=== PATIENT | male | born 1935 | race Two or more races ===

== ENCOUNTER 2016-07-09 23:43 | Emergency (ER) | payer OTHER ==
[2016-07-10] MEDS ORDERED: ASPIRIN 81 MG TABLET, CHEWABLE PO ONE (00:14)
--- NOTE | 2016-07-10 00:14 | ER Document Report ---
ED Medical Screen (RME) - General Chief Complaint: Chest Pain Stated Complaint: BLOOD PRESSURE CONCERNS,CHEST PAIN Time seen by provider: 00:11 Mode of Arrival: Ambulatory Information source: Patient Notes: 80-year-old male presents to ED for chest pain since this morning. He states his left arm started feeling like something was running up and down his arm is but denies pain or pressure. Patient states pain does not radiate anywhere. Patient states his pain went away at this time. I have greeted and performed a rapid initial assessment of this patient. A comprehensive ED assessment and evaluation of the patient, analysis of test results and completion of medical decision making process will be conducted by an additional ED providers. TRAVEL OUTSIDE OF THE [place] IN LAST 30 DAYS: No - Related Data Allergies/Adverse Reactions: No Known Allergies Allergy (Verified 09/17/15 19:08) Past Medical History - Past Medical History Cardiac Medical History: Reports: Hx Hypertension Renal/ Medical History: Reports: Hx Benign Prostatic Hyperplasia Physical Exam - Vital signs Vitals: Temp Pulse Resp BP Pulse Ox 97.3 F 101 H 18 155/73 H 98 07/10/16 00:01 07/10/16 00:01 07/10/16 00:01 07/10/16 00:01 07/10/16 00:01 Course - Vital Signs Vital signs: Temp Pulse Resp BP Pulse Ox 97.3 F 101 H 18 155/73 H 98 07/10/16 00:01 07/10/16 00:01 07/10/16 00:01 07/10/16 00:01 07/10/16 00:01
[2016-07-10] MEDS ORDERED: ASPIRIN 81 MG TABLET, CHEWABLE ONE (00:18)
[2016-07-10 00:40] LABS: ABSOLUTE BASOPHILS # (AUTO) 0.1 10^3/uL (0.0-0.2); ABSOLUTE EOSINOPHILS # (AUTO) 1.1 10^3/uL (0.0-0.6); ABSOLUTE LYMPHOCYTES (AUTO) 1.7 10^3/uL (0.5-4.7); ABSOLUTE MONOCYTES (AUTO) 0.9 10^3/uL (0.1-1.4); ABSOLUTE NEUT (AUTO) 4.2 10^3/uL (1.7-8.2); BASOPHILS % (AUTO) 1.5 % (0-2); HEMATOCRIT 39.8 % (37.9-51.0); HEMOGLOBIN 13.7 g/dL (13.5-17.0); HGB HCT DIFFERENCE 1.3; LYMPHOCYTES % (AUTO) 21.5 % (13-45); MEAN CORPUSCULAR HEMOGLOBIN 30.9 pg (27.0-33.4); MEAN CORPUSCULAR HGB CONC 34.4 g/dL (32.0-36.0); MEAN CORPUSCULAR VOLUME 90 fl (80-97); MONOCYTES % (AUTO) 10.9 % (3-13); RED BLOOD COUNT 4.43 10^6/uL (4.35-5.55); RED CELL DISTRIBUTION WIDTH 13.6 % (11.5-14.0); SEGMENTED NEUTROPHILS % (AUTO) 52.1 % (42-78)
[2016-07-10 00:50] LABS: ALANINE AMINOTRANSFERASE 21 U/L (21-72); ALBUMIN 3.9 g/dL (3.5-5.0); ALKALINE PHOSPHATASE 143 U/L (38-126); ANION GAP 9 (5-19); ASPARTATE AMINO TRANSFERASE 20 U/L (17-59); BILIRUBIN,TOTAL 0.4 mg/dL (0.2-1.3); BLOOD UREA NITROGEN 21 mg/dL (7-20); CALCIUM 8.8 mg/dL (8.4-10.2); CARBON DIOXIDE 30 mmol/L (22-30); CHLORIDE 103 mmol/L (98-107); CREATINE KINASE 91 U/L (55-170); CREATININE RESULT 1.11 mg/dL (0.52-1.25); GLUCOSE 99 mg/dL (75-110); MAGNESIUM 2.1 mg/dL (1.6-2.3); SODIUM 142.3 mmol/L (137-145); TOTAL PROTEIN 6.9 g/dL (6.3-8.2)
[2016-07-10 01:02] LABS: CREATINE KINASE MB 0.52 ng/mL (<4.55); TROPONIN I < 0.012 ng/mL
--- NOTE | 2016-07-10 02:45 | ER Document Report ---
ED Cardiac - General Chief Complaint: Chest Pain Stated Complaint: BLOOD PRESSURE CONCERNS,CHEST PAIN Time seen by provider: 02:41 Mode of Arrival: Ambulatory Information source: Patient, Relative - Granddaughter TRAVEL OUTSIDE OF THE [place] IN LAST 30 DAYS: No - HPI Patient complains to provider of: Chest pain Was the onset of pain: Sudden Is the pain a: New problem Chest pain location: Other - Left anterior chest wall Quality of pain: Mild, Dull Severity now: None Pain level currently: Denies Chest pain precipitating factors: Mental Exertion/Stress Cardiac risk factors: Hypertension Positive cardiac history: No Associated symptoms: None Exacerbated by: Denies Relieved by: Nothing Similar symptoms previously: No Recently seen / treated by doctor: No Notes: Patient is an 80-year-old male with a history of hypertension who presents to the emergency room with his granddaughter for complaints of tingling sensation in the left arm with left anterior chest wall pain that started while patient was crying because he was worried about his grandson who is currently traveling to [place], he reports symptoms started around 10 PM when he was emotionally upset, they have since resolved without intervention, have not returned, he denies any diaphoresis, no shortness of breath, granddaughter notes his blood pressure was elevated at time of symptoms starting as well, he does have a history of hypertension and takes medication for this, he did not take any additional medication this evening and his blood pressure at time of my evaluation is 128/62, he reports all of his symptoms have completely resolved and not returned - Related Data Allergies/Adverse Reactions: No Known Allergies Allergy (Verified 09/17/15 19:08) Home Medications: Current Home Medications Lisinopril [Prinivil] 20 mg PO DAILY 07/10/16 [History] Past Medical History - General Information source: Patient - Social History Smoking Status: Former Smoker Frequency of alcohol use: None Drug Abuse: None Family History: Reviewed & Not Pertinent - Past Medical History Cardiac Medical History: Reports: Hx Hypertension Renal/ Medical History: Reports: Hx Benign Prostatic Hyperplasia. Denies: Hx Peritoneal Dialysis Review of Systems - Review of Systems Constitutional: No symptoms reported EENT: No symptoms reported Cardiovascular: Chest pain Respiratory: No symptoms reported Gastrointestinal: No symptoms reported Genitourinary: No symptoms reported Male Genitourinary: No symptoms reported Musculoskeletal: No symptoms reported Skin: No symptoms reported Hematologic/Lymphatic: No symptoms reported Neurological/Psychological: Tingling -: Yes All other systems reviewed and negative Physical Exam - Vital signs Vitals: Temp Pulse Resp BP Pulse Ox 97.3 F 101 H 18 155/73 H 98 07/10/16 00:01 07/10/16 00:01 07/10/16 00:01 07/10/16 00:01 07/10/16 00:01 Interpretation: Normal - General General appearance: Appears well, Alert - HEENT Head: Normocephalic, Atraumatic Eyes: Normal Pupils: PERRL - Respiratory Respiratory status: No respiratory distress Chest status: Nontender Breath sounds: Normal Chest palpation: Normal - Cardiovascular Rhythm: Regular Heart sounds: Normal auscultation Murmur: No - Abdominal Inspection: Normal Distension: No distension Bowel sounds: Normal Tenderness: Nontender Organomegaly: No organomegaly - Back Back: Normal, Nontender - Extremities General upper extremity: Normal inspection, Nontender, Normal color, Normal ROM , Normal temperature General lower extremity: Normal inspection, Nontender, Normal color, Normal ROM , Normal temperature, Normal weight bearing. No: Renay's sign - Neurological Neuro grossly intact: Yes Cognition: Normal Orientation: AAOx4 Bibi Coma Scale Eye Opening: Spontaneous Dougherty Coma Scale Verbal: Oriented Dougherty Coma Scale Motor: Obeys Commands Bibi Coma Scale Total: 15 Speech: Normal Motor strength normal: LUE, RUE, LLE, RLE Sensory: Normal - Psychological Associated symptoms: Normal affect, Normal mood - Skin Skin Temperature: Warm Skin Moisture: Dry Skin Color: Normal Course - Re-evaluation Re-evalutation: 07/10/16 02:43 Patient symptoms completely resolved without any intervention, his symptoms started when he was emotionally stressed regarding his grandson who is traveling to [place], his vital signs are stable, his evaluation in the emergency room is unremarkable, patient has a history of hypertension but no history of VT previously, patient was discharged with instructions for follow-up , advised to return if symptoms worsen, patient acknowledges understanding and agreement with this plan - Vital Signs Vital signs: Temp Pulse Resp BP Pulse Ox 97.3 F 101 H 15 137/71 H 96 07/10/16 00:01 07/10/16 00:01 07/10/16 01:40 07/10/16 01:39 07/10/16 01:40 - Laboratory Result Diagrams: 07/10/16 00:27 07/10/16 00:27 Laboratory results interpreted by me: 07/10/16 07/10/16 00:27 00:27 Eosinophils % 14.0 H Absolute Eosinophils 1.1 H BUN 21 H Alkaline Phosphatase 143 H - Diagnostic Test Radiology reviewed: Image reviewed, Reports reviewed - EKG Interpretation by Me EKG shows normal: Sinus rhythm Rate: Normal Rhythm: NSR Discharge - Discharge Clinical Impression: Chest pain Qualifiers: Chest pain type: unspecified Qualified Code(s): R07.9 - Chest pain, unspecified Condition: Stable Disposition: HOME, SELF-CARE Instructions: Chest Pain of Unclear Cause ([facility]), Anxiety ([facility]) Additional Instructions: Follow up with your primary care provider in one to 2 days. Return to the emergency room immediately if symptoms worsen or any additional concerns.
[2016-07-10 02:51] VITALS: BP 140/67
--- NOTE | 2016-07-10 09:26 | EKG REPORT ---
SEVERITY:- ABNORMAL ECG - SINUS RHYTHM PROBABLE LEFT ATRIAL ABNORMALITY LEFT VENTRICULAR HYPERTROPHY : Confirmed by: Jona Clayton 10-Jul-2016 09:25:49
== END 2016-07-10 02:50 | disposition home or self-care (01) ==
LOC: ER 23:43
DX: R07.9 Chest pain, unspecified (principal); I10 Essential (primary) hypertension; Z87.891 Personal history of nicotine dependence
CPT/HCPCS: 36415; 71020; 80053; 82550; 82553; 83735; 84443; 84484; 85025; 93005; 93010; 99285

== ENCOUNTER 2016-09-29 10:48 | Emergency (ER) | payer MEDICAID, MEDICARE, OTHER ==
[2016-09-29] MEDS ORDERED: ASPIRIN 81 MG TABLET, CHEWABLE PO ONE (11:28)
--- NOTE | 2016-09-29 11:30 | ER Document Report ---
ED Medical Screen (RME) - General Chief Complaint: High Blood Pressure Stated Complaint: BLOOD PERSSURE ISSUES Time seen by provider: 11:29 Mode of Arrival: Ambulatory Information source: Patient Notes: 80-year-old male who speaks Vietnamese is here with his daughter who is translating in triage. he is here in the emergency room because of the complaint of dizziness and ear pressure all night. He takes lisinopril 20 mg daily. He goes to the [facility]. They attributed the symptoms to higher blood pressure than normal when it went up to 160/90 yesterday. TRAVEL OUTSIDE OF THE [place] IN LAST 30 DAYS: No - Related Data Allergies/Adverse Reactions: No Known Allergies Allergy (Verified 09/17/15 19:08) Past Medical History - Past Medical History Cardiac Medical History: Reports: Hx Hypertension Renal/ Medical History: Reports: Hx Benign Prostatic Hyperplasia. Denies: Hx Peritoneal Dialysis Physical Exam - Vital signs Vitals: Temp Pulse Resp BP Pulse Ox 98.1 F 99 12 181/84 H 97 09/29/16 10:51 09/29/16 10:51 09/29/16 10:51 09/29/16 10:51 09/29/16 10:51 Course - Vital Signs Vital signs: Temp Pulse Resp BP Pulse Ox 98.1 F 99 12 181/84 H 97 09/29/16 10:51 09/29/16 10:51 09/29/16 10:51 09/29/16 10:51 09/29/16 10:51
[2016-09-29 12:01] LABS: ABSOLUTE BASOPHILS # (AUTO) 0.1 10^3/uL (0.0-0.2); ABSOLUTE EOSINOPHILS # (AUTO) 0.7 10^3/uL (0.0-0.6); ABSOLUTE LYMPHOCYTES (AUTO) 1.7 10^3/uL (0.5-4.7); ABSOLUTE MONOCYTES (AUTO) 0.7 10^3/uL (0.1-1.4); ABSOLUTE NEUT (AUTO) 4.3 10^3/uL (1.7-8.2); BASOPHILS % (AUTO) 1.5 % (0-2); EOSINOPHILS % (AUTO) 9.5 % (0-6); HEMATOCRIT 41.7 % (37.9-51.0); HEMOGLOBIN 14.2 g/dL (13.5-17.0); HGB HCT DIFFERENCE 0.9; MEAN CORPUSCULAR HEMOGLOBIN 30.8 pg (27.0-33.4); MEAN CORPUSCULAR HGB CONC 34.1 g/dL (32.0-36.0); MEAN CORPUSCULAR VOLUME 90 fl (80-97); MONOCYTES % (AUTO) 9.7 % (3-13); RED BLOOD COUNT 4.62 10^6/uL (4.35-5.55); RED CELL DISTRIBUTION WIDTH 13.8 % (11.5-14.0); SEGMENTED NEUTROPHILS % (AUTO) 57.3 % (42-78); WHITE BLOOD COUNT 7.5 10^3/uL (4.0-10.5)
[2016-09-29 12:04] LABS: APPEARANCE,URINE CLEAR; BILIRUBIN,URINE NEGATIVE (NEGATIVE); GLUCOSE, URINE NEGATIVE (NEGATIVE); KETONES,URINE NEGATIVE (NEGATIVE); LEUKOCYTE ESTERASE,URINE NEGATIVE (NEGATIVE); NITRITE,URINE NEGATIVE (NEGATIVE); PROTEIN,URINE 30 mg/dL (NEGATIVE); URINE SPECIFIC GRAVITY 1.014; UROBILINOGEN,URINE NEGATIVE mg/dL (<2.0)
[2016-09-29 12:22] LABS: ALANINE AMINOTRANSFERASE 21 U/L (21-72); ALKALINE PHOSPHATASE 158 U/L (38-126); ANION GAP 13 (5-19); ASPARTATE AMINO TRANSFERASE 22 U/L (17-59); BILIRUBIN,DIRECT 0.2 mg/dL (0.0-0.4); BILIRUBIN,TOTAL 0.8 mg/dL (0.2-1.3); BLOOD UREA NITROGEN 19 mg/dL (7-20); CALCIUM 9.1 mg/dL (8.4-10.2); CARBON DIOXIDE 27 mmol/L (22-30); CHLORIDE 104 mmol/L (98-107); CREATINE KINASE 121 U/L (55-170); CREATININE RESULT 1.21 mg/dL (0.52-1.25); GLUCOSE 87 mg/dL (75-110); POTASSIUM 4.2 mmol/L (3.6-5.0); SODIUM 144.1 mmol/L (137-145); TOTAL PROTEIN 7.1 g/dL (6.3-8.2)
[2016-09-29 12:34] LABS: CREATINE KINASE MB 0.49 ng/mL (<4.55); TROPONIN I < 0.012 ng/mL
[2016-09-29] MEDS ORDERED: AMLODIPINE BESYLATE 5 MG TABLET PO ONE (13:00)
--- NOTE | 2016-09-29 13:06 | ER Document Report ---
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 Patient takes lisinopril 20 mg a day and states that he has been taking his medication regularly. Patient states yesterday he felt a little "lightheaded" with "ear pressure". Patient states that this is the normal feeling he has when his blood pressure is elevated. He denies any headache, chest pain, palpitations, back pain, or abdominal pain. Patient states he feels "better" without any intervention here at this facility thus far. Patient does not have insurance and is currently not a [place] citizen. He does go 3 times a week to the [facility] but does not go to the [facility] primary care physician. He gets his blood pressure medications written from the emergency department. TRAVEL OUTSIDE OF THE [place] IN LAST 30 DAYS: No - HPI Patient complains to provider of: High blood pressure, Other - See above Onset: Other - See above Onset/Duration: Gradual Quality of pain: Other - See above Severity: Mild Pain Level: Denies Problem is: New problem Pt currently taking medication for problem: Yes Associated symptoms: Other - See above Similar symptoms previously: Yes Recently seen / treated by doctor: No - Related Data Allergies/Adverse Reactions: No Known Allergies Allergy (Verified 09/17/15 19:08) Past Medical History - General Information source: Patient - Social History Smoking Status: Unknown if Ever Smoked Cigarette use (# per day): No Chew tobacco use (# tins/day): No Smoking Education Provided: No Frequency of alcohol use: None Family History: Reviewed & Not Pertinent - Past Medical History Cardiac Medical History: Reports: Hx Hypertension Renal/ Medical History: Reports: Hx Benign Prostatic Hyperplasia. Denies: Hx Peritoneal Dialysis - Immunizations Hx Diphtheria, Pertussis, Tetanus Vaccination: No Review of Systems - Review of Systems Constitutional: denies: Fever EENT: denies: Eye discharge, Nose discharge Cardiovascular: denies: Chest pain, Palpitations Respiratory: denies: Short of breath Gastrointestinal: denies: Vomiting Genitourinary: denies: Dysuria Neurological/Psychological: Other - no slurred speech -: Yes All other systems reviewed and negative Physical Exam - Vital signs Vitals: Temp Pulse Resp BP Pulse Ox 98.1 F 99 12 181/84 H 97 09/29/16 10:51 09/29/16 10:51 09/29/16 10:51 09/29/16 10:51 09/29/16 10:51 Interpretation: Normal Notes: Reviewed vital signs and nursing note as charted by RN. CONSTITUTIONAL: Alert and oriented and responds appropriately to questions. Well -appearing; well-nourished HEAD: Normocephalic; atraumatic EYES: PERRL; full extraocular range of motion ENT: Normal nose; no rhinorrhea; tympanic membranes clear bilaterally with good landmarks; moist mucous membranes; pharynx without lesions noted NECK: Supple without meningismus; no carotid bruits; non-tender; no cervical lymphadenopathy, no masses CARD: Regular rate and rhythm; no murmurs, no clicks, no rubs, no gallops; symmetric distal pulses RESP: Normal chest excursion without splinting or tachypnea; breath sounds clear and equal bilaterally; no wheezes, no rhonchi, no rales ABD/GI: Normal bowel sounds; non-distended; soft, non-tender BACK: The back appears normal and is non-tender to palpation, there is no CVA tenderness EXT: Patient has some bandages and ulcers to the medial lateral aspect of the right foot. Patient and granddaughter states that these lesions are much improved from 2 weeks ago and the patient was started on antibiotics. Patient is a 3 PM appointment today for the wound care clinic. Patient has no streaking or erythema to the lower leg. SKIN: Normal color for age and race; warm; dry; good turgor; capillary refill < 2 seconds; no acute lesions noted NEURO: No nystagmus. CN II through XII are intact. Patient has 5 out of 5 bilateral upper and lower extremity strength with sensation intact to light touch. Normal cerebellar examination. PSYCH: The patient's mood and manner are appropriate. Grooming and personal hygiene are appropriate. Course - Re-evaluation Re-evalutation: 09/29/16 13:04 Given the history and physical examination we will check basic labs, cardiac enzymes, troponin, EKG, and perform a CT scan of the head. X-ray of the chest performed in triage. Chest x-ray shows normal heart, normal mediastinum, no fractures, normal lung good, no pneumothorax. EKG shows a heart rate of 83, normal sinus rhythm, normal axis, LVH with no ST elevation or depression. Old EKG from 07/09/2016 shows a similar finding. Patient currently denies any symptoms. His blood pressure was elevated upon arrival. He has taken lisinopril 20 mg a day for an extended period of time. Chemistry as recorded. Normal troponin. The patient's CT imaging is unremarkable, I will most likely start the patient on a low dose of daily Norvasc with strict return precautions and follow-up with the [facility] as his new primary care physician. Patient received citizenship in February and will have Medicare at that time. 09/29/16 14:14 CT scan as recorded. Patient still denies any symptoms or focal neurological deficits. Patient will be discharged home with strict return precautions and follow-up with the [facility] with a prescription for 5 mg of Norvasc daily. - Vital Signs Vital signs: Temp Pulse Resp BP Pulse Ox 98.1 F 99 12 181/84 H 97 09/29/16 10:51 09/29/16 10:51 09/29/16 10:51 09/29/16 10:51 09/29/16 10:51 - Laboratory Result Diagrams: 09/29/16 11:40 09/29/16 11:40 Laboratory results interpreted by me: 09/29/16 09/29/16 09/29/16 11:40 11:40 11:40 Eosinophils % 9.5 H Absolute Eosinophils 0.7 H Est GFR (Non-Af Amer) 58 L Alkaline Phosphatase 158 H Urine Protein 30 H Discharge - Discharge Clinical Impression: Elevated blood pressure reading, Dizziness Condition: Good Disposition: HOME, SELF-CARE Additional Instructions: Come back immediately with any return of dizziness, any headache, chest pain, weakness or numbness, or any other acute problems. Please make sure that you follow-up with the primary care providers at the [facility] and take the new medication as prescribed. Prescriptions: Amlodipine Besylate [Norvasc 5 mg Tablet] 5 mg PO DAILY #30 tablet
[2016-09-29 15:09] VITALS: BP 139/80
--- NOTE | 2016-09-29 21:16 | EKG REPORT ---
SEVERITY:- ABNORMAL ECG - SINUS RHYTHM PROBABLE LEFT ATRIAL ABNORMALITY PROBABLE LEFT VENTRICULAR HYPERTROPHY : Confirmed by: Jona Clayton 29-Sep-2016 21:16:14
== END 2016-09-29 14:30 | disposition home or self-care (01) ==
LOC: ER 10:48
DX: I10 Essential (primary) hypertension (principal); R42 Dizziness and giddiness; L97.519 Non-pressure chronic ulcer of other part of right foot with unspecified severity
CPT/HCPCS: 36415; 70450; 71010; 80053; 81001; 82550; 82553; 84484; 85025; 93005; 93010; 99284

== ENCOUNTER 2016-11-16 14:29 | Emergency (ER) | payer OTHER ==
--- NOTE | 2016-11-16 15:51 | ER Document Report ---
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 He states that for the past 2 days he has had increased difficulty urinating and at times is been unable to urinate. He has had dysuria as well. He denies any fevers or chills. He states this morning he was able to urinate some and feels somewhat better today. He states he had a previous episode of urinary retention a few years ago in [place] and required a Bolanos catheter at that time. I have greeted and performed a rapid initial assessment of this patient. A comprehensive ED assessment and evaluation of the patient, analysis of test results and completion of the medical decision making process will be conducted by additional ED providers. TRAVEL OUTSIDE OF THE [place] IN LAST 30 DAYS: No - Related Data Allergies/Adverse Reactions: No Known Allergies Allergy (Verified 11/16/16 14:36) Past Medical History - Past Medical History Cardiac Medical History: Reports: Hx Hypertension Renal/ Medical History: Reports: Hx Benign Prostatic Hyperplasia. Denies: Hx Peritoneal Dialysis - Immunizations Hx Diphtheria, Pertussis, Tetanus Vaccination: No Physical Exam - Vital signs Vitals: Temp Pulse Resp BP Pulse Ox 98.5 F 104 H 20 139/87 H 95 11/16/16 14:36 11/16/16 14:36 11/16/16 14:36 11/16/16 14:36 11/16/16 14:36 - General General appearance: Appears well In distress: None - Respiratory Respiratory status: No respiratory distress Breath sounds: Normal. No: Rales, Rhonchi, Wheezing - Cardiovascular Rhythm: Regular Heart sounds: Normal auscultation, S1 appreciated, S2 appreciated Course - Vital Signs Vital signs: Temp Pulse Resp BP Pulse Ox 98.5 F 104 H 20 139/87 H 95 11/16/16 14:36 11/16/16 14:36 11/16/16 14:36 11/16/16 14:36 11/16/16 14:36
[2016-11-16 16:17] LABS: ABSOLUTE LYMPHOCYTES (AUTO) 0.7 10^3/uL (0.5-4.7); ABSOLUTE MONOCYTES (AUTO) 0.4 10^3/uL (0.1-1.4); ABSOLUTE NEUT (AUTO) 3.1 10^3/uL (1.7-8.2); BASOPHILS % (AUTO) 0.9 % (0-2); EOSINOPHILS % (AUTO) 0.1 % (0-6); HEMATOCRIT 44.3 % (37.9-51.0); HEMOGLOBIN 14.8 g/dL (13.5-17.0); HGB HCT DIFFERENCE 0.1; LYMPHOCYTES % (AUTO) 16.2 % (13-45); MEAN CORPUSCULAR HEMOGLOBIN 30.1 pg (27.0-33.4); MEAN CORPUSCULAR HGB CONC 33.5 g/dL (32.0-36.0); MEAN CORPUSCULAR VOLUME 90 fl (80-97); MONOCYTES % (AUTO) 8.6 % (3-13); RED BLOOD COUNT 4.93 10^6/uL (4.35-5.55); RED CELL DISTRIBUTION WIDTH 13.8 % (11.5-14.0); SEGMENTED NEUTROPHILS % (AUTO) 74.2 % (42-78); WHITE BLOOD COUNT 4.2 10^3/uL (4.0-10.5)
[2016-11-16 16:20] LABS: APPEARANCE,URINE CLEAR; BILIRUBIN,URINE NEGATIVE (NEGATIVE); GLUCOSE, URINE NEGATIVE (NEGATIVE); KETONES,URINE NEGATIVE (NEGATIVE); LEUKOCYTE ESTERASE,URINE NEGATIVE (NEGATIVE); NITRITE,URINE NEGATIVE (NEGATIVE); PROTEIN,URINE NEGATIVE (NEGATIVE); URINE SPECIFIC GRAVITY 1.011; UROBILINOGEN,URINE NEGATIVE mg/dL (<2.0)
[2016-11-16 16:28] LABS: ALANINE AMINOTRANSFERASE 33 U/L (21-72); ALBUMIN 3.9 g/dL (3.5-5.0); ALKALINE PHOSPHATASE 149 U/L (38-126); ANION GAP 12 (5-19); ASPARTATE AMINO TRANSFERASE 41 U/L (17-59); BILIRUBIN,DIRECT 0.3 mg/dL (0.0-0.4); BILIRUBIN,TOTAL 0.9 mg/dL (0.2-1.3); BLOOD UREA NITROGEN 19 mg/dL (7-20); CALCIUM 8.5 mg/dL (8.4-10.2); CARBON DIOXIDE 28 mmol/L (22-30); CHLORIDE 99 mmol/L (98-107); CREATININE RESULT 1.12 mg/dL (0.52-1.25); GLUCOSE 91 mg/dL (75-110); POTASSIUM 3.6 mmol/L (3.6-5.0); SODIUM 138.6 mmol/L (137-145); TOTAL PROTEIN 7.6 g/dL (6.3-8.2)
[2016-11-16] MEDS ORDERED: TAMSULOSIN HCL 0.4 MG CAP.SR.24H PO ONE (17:04)
--- NOTE | 2016-11-16 17:19 | ER Document Report ---
ED GI/ - General Chief Complaint: Abdominal Pain Stated Complaint: ABDOMINAL PAIN Time Seen by Provider: 11/16/16 15:42 Mode of Arrival: Wheelchair Information source: Patient Notes: Patient is an 81-year-old male who presents to the ER today for urinary retention 2 days. Patient has a history of BPH and is on Flomax, but cannot get in with his primary care provider, [facility] until the end of December. Patient has been urinating "just trickles" for the last 2 days and has some lower abdominal pressure because of it. He denies any fever, chills, hematuria, history of kidney stones, low back pain. He has had to have a Bolanos before for this. TRAVEL OUTSIDE OF THE [place] 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 Denies: Hx Peritoneal Dialysis Past Surgical History: Reports: Hx Orthopedic Surgery - right foot surgery - Immunizations Hx Diphtheria, Pertussis, Tetanus Vaccination: No Review of Systems - Review of Systems Constitutional: No symptoms reported EENT: No symptoms reported Cardiovascular: No symptoms reported Respiratory: No symptoms reported Gastrointestinal: No symptoms reported Genitourinary: See HPI Male Genitourinary: No symptoms reported Musculoskeletal: No symptoms reported Skin: No symptoms reported Hematologic/Lymphatic: No symptoms reported Neurological/Psychological: No symptoms reported Physical Exam - Vital signs Vitals: Temp Pulse Resp BP Pulse Ox 98.5 F 104 H 20 139/87 H 95 11/16/16 14:36 11/16/16 14:36 11/16/16 14:36 11/16/16 14:36 11/16/16 14:36 - Notes Notes: PHYSICAL EXAMINATION: GENERAL: Well-appearing and in no acute distress. HEAD: Atraumatic, normocephalic. EYES: Pupils equal round and reactive to light, extraocular movements intact, sclera anicteric, conjunctiva are normal. NECK: Normal range of motion, supple without lymphadenopathy LUNGS: CTAB and equal. No wheezes rales or rhonchi. HEART: Regular rate and rhythm without murmurs ABDOMEN: Soft, no tenderness. No guarding, no rebound BACK: no vertebral tenderness, normal ROM GI/: no CVA tenderness EXTREMITIES: Normal range of motion, no pitting edema. No cyanosis. NEUROLOGICAL: Cranial nerves grossly intact. Normal sensory/motor exams. PSYCH: Normal mood, normal affect. SKIN: Warm, Dry, normal turgor, no rashes or lesions noted Course - Re-evaluation Re-evalutation: 11/16/16 17:27 Bolanos leg bag placed here in the emergency department, patient has no insurance and cannot get in with caring [facility] until the end of December, more than a month from now, I did advise family that I have placed an order for discharge services, social work to hopefully can get him in with urology. I did not want to start him on dual therapy right now as that will need to be monitored and that is not appropriate in the emergency department. I did advise that if for some reason they cannot get an with the primary care provider or urologist within the month thing to come back here for a change of the Bolanos. Urinalysis today is clean, lab work is unremarkable. - Vital Signs Vital signs: Temp Pulse Resp BP Pulse Ox 98.5 F 104 H 20 139/87 H 95 11/16/16 14:36 11/16/16 14:36 11/16/16 14:36 11/16/16 14:36 11/16/16 14:36 - Laboratory Result Diagrams: 11/16/16 16:02 11/16/16 16:02 Laboratory results interpreted by me: 11/16/16 11/16/16 16:02 16:02 Plt Count 146 L Alkaline Phosphatase 149 H Discharge - Discharge Clinical Impression: Urinary retention BPH (benign prostatic hyperplasia) Qualifiers: Lower urinary tract symptom presence: symptoms present Lower urinary tract symptom detail: urinary retention Qualified Code(s): N40.1 - Benign prostatic hyperplasia with lower urinary tract symptoms; R33.8 - Other retention of urine Condition: Stable Disposition: HOME, SELF-CARE Additional Instructions: Return immediately for any new or worsening symptoms. Follow up with primary care provider, call tomorrow to make followup appointment.
[2016-11-16 18:04] VITALS: BP 99/80
== END 2016-11-16 18:03 | disposition home or self-care (01) ==
LOC: ER 14:29
DX: N40.1 Benign prostatic hyperplasia with lower urinary tract symptoms (principal); R33.8 Other retention of urine; R10.9 Unspecified abdominal pain; I10 Essential (primary) hypertension
CPT/HCPCS: 36415; 51702; 80053; 81001; 85025; 99284

== ENCOUNTER 2016-12-14 14:21 | Emergency (ER) | payer OTHER ==
--- NOTE | 2016-12-14 15:34 | ER Document Report ---
HPI - HPI Patient complains to provider of: leigh removal Onset: Other - 1 month Onset/Duration: Better Quality of pain: No pain Pain Level: Denies Context: Patient states that he was treated for urinary retention due to BPH last month. Patient had a Leigh catheter placed. Patient was unable to follow-up with urology in a timely manner. Patient states that he traveled to [place] and then developed a urinary tract infection. Patient was evaluated in the emergency department November 29 in [place] and treated with a 10 day course of ciprofloxacin. Patient states that his UTI symptoms have all resolved and he feels much better. Patient states that during his trip to [place] he missed his initial urology appointment. Patient denies any fever, abdominal pain, or back pain. Patient states that when he was in [place] that they changed out his leigh. Associated Symptoms: None. denies: Fever, Nausea, Vomiting Exacerbated by: Denies Relieved by: Denies Similar symptoms previously: Yes Recently seen / treated by doctor: Yes - ROS ROS below otherwise negative: Yes Systems Reviewed and Negative: Yes All other systems reviewed and negative - CONSTITUTIONAL Constitutional: DENIES: Fever, Chills - CARDIOVASCULAR Cardiovascular: DENIES: Chest pain - RESPIRATORY Respiratory: DENIES: Trouble Breathing, Coughing - GASTROINTESTINAL Gastrointestinal: DENIES: Abdominal Pain, Nausea, Patient vomiting - URINARY Urinary: DENIES: Dysuria - MUSCULOSKELETAL Musculoskeletal: DENIES: Back Pain - DERM Skin Color: Normal Skin Problems: None Past Medical History - General Information source: Patient - Social History Smoking Status: Never Smoker Chew tobacco use (# tins/day): No Frequency of alcohol use: None Drug Abuse: None Occupation: none Lives with: Family Family History: Reviewed & Not Pertinent Patient has suicidal ideation: No Patient has homicidal ideation: No - Past Medical History Cardiac Medical History: Reports: Hx Hypertension Renal/ Medical History: Reports: Hx Benign Prostatic Hyperplasia. Denies: Hx Peritoneal Dialysis Past Surgical History: Reports: Hx Orthopedic Surgery - right foot surgery - Immunizations Hx Diphtheria, Pertussis, Tetanus Vaccination: No Vertical Provider Document - CONSTITUTIONAL Agree With Documented VS: Yes Exam Limitations: No Limitations General Appearance: WD/WN, No Apparent Distress - INFECTION CONTROL TRAVEL OUTSIDE OF THE [place] IN LAST 30 DAYS: No - HEENT HEENT: Atraumatic, Normocephalic - NECK Neck: Normal Inspection - RESPIRATORY Respiratory: Breath Sounds Normal, No Respiratory Distress O2 Sat by Pulse Oximetry: 96 - CARDIOVASCULAR Cardiovascular: Regular Rate, Regular Rhythm, No Murmur - GI/ABDOMEN Gastrointestinal: Abdomen Soft, Abdomen Non-Tender, No Organomegaly - BACK Back: Normal Inspection. negative: CVA Tenderness-Right, CVA Tenderness-Left Notes: no spinal tenderness - MUSCULOSKELETAL/EXTREMETIES Musculoskeletal/Extremeties: CARI MOODY - NEURO Level of Consciousness: Awake, Alert, Appropriate Motor/Sensory: No Motor Deficit - DERM Integumentary: Warm, Dry, No Rash Course - Re-evaluation Re-evalutation: 12/14/16 15:32 The patient has been informed that they may have pre-hypertension or hypertension based on a blood pressure reading in the emergency department. I recommend that patient call the primary care provider listed on their discharge instructions or a physician of their choice by this week to arrange follow-up for further evaluation of possible pre-hypertension her hypertension. 12/14/16 15:32 Discussed signs or symptoms that patient should return immediately for including retention, inability to void longer than 6 hours, fever, abdominal pain, back pain, nausea, or vomiting. Patient and family have had experience with urinary retention in the past and states that they are familiar with what symptoms to notice and return for 12/14/16 Patient declined using [employer] lathe puller services. Patient preferred to use family member as lathe puller. - Vital Signs Vital signs: Temp Pulse Resp BP Pulse Ox 98.6 F 101 H 18 141/72 H 96 12/14/16 14:28 12/14/16 14:28 12/14/16 14:28 12/14/16 14:28 12/14/16 14:28 Discharge - Discharge Clinical Impression: Encounter for Leigh catheter removal, Hx of essential hypertension Condition: Stable Disposition: HOME, SELF-CARE Additional Instructions: Return immediately for any new or worsening symptoms Followup with your primary care provider, call tomorrow to make a followup appointment Follow-up with a urologist as previously planned Forms: Elevated Blood Pressure Referrals: [facility] [Provider Group] - Follow up as needed [facility] [Provider Group] - Follow up as needed [facility] [Provider Group] - Follow up tomorrow
[2016-12-14 15:49] VITALS: BP 143/75
== END 2016-12-14 15:44 | disposition home or self-care (01) ==
LOC: ER 14:21
DX: Z46.6 Encounter for fitting and adjustment of urinary device (principal); I10 Essential (primary) hypertension; N40.0 Benign prostatic hyperplasia without lower urinary tract symptoms
CPT/HCPCS: 99283

== ENCOUNTER 2016-12-15 17:16 | Emergency (ER) | payer OTHER ==
--- NOTE | 2016-12-15 19:43 | ER Document Report ---
HPI - HPI Onset: Other - More than 1 month ago Onset/Duration: Gradual Quality of pain: Burning Severity: Mild Pain Level: 3 Exacerbated by: Denies Relieved by: Denies Similar symptoms previously: Yes Recently seen / treated by doctor: Yes Notes: Patient is an 81-year-old male who does not speak Sami. He speaks Surinamese with administrative volunteer by family. Patient was seen about 1 month ago for BPH symptoms and had a Bolanos catheter place. Patient has not followed up with urology. Patient came yesterday to the emergency department to have his Bolanos catheter removed. Since that time. Patient is complaining of dysuria, burning with urination, and difficulty with urination. Patient is requesting the Bolanos catheter be replaced until he can follow-up with urology. No fevers or chills. - CARDIOVASCULAR Cardiovascular: DENIES: Chest pain - DERM Skin Color: Normal Past Medical History - General Information source: Patient, Relative - Social History Smoking Status: Never Smoker Chew tobacco use (# tins/day): No Frequency of alcohol use: None Drug Abuse: None Family History: Reviewed & Not Pertinent Patient has suicidal ideation: No Patient has homicidal ideation: No - Past Medical History Cardiac Medical History: Reports: Hx Hypertension Renal/ Medical History: Reports: Hx Benign Prostatic Hyperplasia. Denies: Hx Peritoneal Dialysis Past Surgical History: Reports: Hx Orthopedic Surgery - right foot surgery - Immunizations Hx Diphtheria, Pertussis, Tetanus Vaccination: No Vertical Provider Document - CONSTITUTIONAL Agree With Documented VS: Yes Exam Limitations: Language Barrier General Appearance: WD/WN, No Apparent Distress - INFECTION CONTROL TRAVEL OUTSIDE OF THE [place] IN LAST 30 DAYS: No - HEENT HEENT: Normocephalic - NECK Neck: Normal Inspection - RESPIRATORY Respiratory: Breath Sounds Normal O2 Sat by Pulse Oximetry: 97 - CARDIOVASCULAR Cardiovascular: Regular Rate - GI/ABDOMEN Gastrointestinal: Abdomen Non-Tender, Normal Bowel Sounds - BACK Back: Normal Inspection - MUSCULOSKELETAL/EXTREMETIES Musculoskeletal/Extremeties: MAEW, FROM, Non-Tender - NEURO Level of Consciousness: Awake, Alert, Appropriate - DERM Integumentary: Warm, Dry Course - Re-evaluation Re-evalutation: 12/15/16 19:42 Patient request, will replace Bolanos catheter. Patient's administrative volunteer states that they are going to get him to see a urologist. Will also check UA. 12/15/16 20:06 We will treat patient for UTI. Patient be discharged home after Bolanos catheter was placed. - Vital Signs Vital signs: Temp Pulse Resp BP Pulse Ox 98.4 F 112 H 22 H 154/96 H 97 12/15/16 17:31 12/15/16 17:31 12/15/16 17:31 12/15/16 17:31 12/15/16 17:31 Discharge - Discharge Clinical Impression: Urinary retention Condition: Good Disposition: HOME, SELF-CARE Instructions: Urinary Retention ([facility]), Urinary Tract Infection ([facility]) Additional Instructions: Follow-up with urology for removal of your Bolanos catheter. Return to the emergency department if worse or for any other problems. Prescriptions: Sulfamethoxazole/Trimethoprim [Bactrim Ds Tablet] 1 each PO BID #14 tablet Referrals: [facility] [Provider Group] - Follow up as needed [facility] [Provider Group] - Follow up as needed
[2016-12-15 20:02] LABS: APPEARANCE,URINE CLOUDY; BILIRUBIN,URINE NEGATIVE (NEGATIVE); GLUCOSE, URINE NEGATIVE (NEGATIVE); KETONES,URINE NEGATIVE (NEGATIVE); LEUKOCYTE ESTERASE,URINE LARGE (NEGATIVE); NITRITE,URINE NEGATIVE (NEGATIVE); PROTEIN,URINE 30 mg/dL (NEGATIVE); URINE SPECIFIC GRAVITY 1.012; UROBILINOGEN,URINE NEGATIVE mg/dL (<2.0)
[2016-12-15] MEDS ORDERED: SULFAMETHOXAZOLE/TRIMETHOPRIM 800-160 MG TABLET PO ONE (20:06)
[2016-12-15 21:10] VITALS: BP 132/64
== END 2016-12-15 21:09 | disposition home or self-care (01) ==
LOC: ER 17:16
DX: R33.9 Retention of urine, unspecified (principal); Z46.6 Encounter for fitting and adjustment of urinary device; N39.0 Urinary tract infection, site not specified; R30.0 Dysuria; I10 Essential (primary) hypertension
CPT/HCPCS: 51702; 81001; 87086; 87088; 87186; 99283